=== PATIENT | male | born 1960 | race Hispanic/Latino ===

== ENCOUNTER 2019-08-28 20:23 | Emergency (ER) | payer OTHER, SELFPAY ==
--- NOTE | 2019-08-28 21:20 | RAD ---
LEFT KNEE FOUR VIEWS: HISTORY: Left knee pain. FINDINGS: Mild degenerative changes are seen. No fracture, dislocation or bony destruction is identified. A zenaida nt effusion is present. POS: [facility]
[2019-08-28] MEDS ORDERED: Lidocaine 1% w/Epinephrine 1:100K 20 ML VIAL ONE (21:46)
[2019-08-28] MEDS ORDERED: Ketorolac Tromethamine 30 MG/ML VIAL ONE (22:44)
[2019-08-28 23:16] LABS: RBC Count-Automated (BF) 0 /cumm
[2019-08-28 23:31] LABS: WBC/Nucleated-Auto (BF) Greater than 51000 uL
[2019-08-28 23:32] LABS: BF Color Yellow; Body Fluid Source Synovial Fluid; Clarity Cloudy/Turbid (Clear); Tube # EDTA
[2019-08-29 00:31] LABS: BF Segmented Neutrophils 86 %; Cell Count Non Hematic 12 %; Lymphocytes 2 %
== END 2019-08-28 23:50 | disposition home or self-care (01) ==
LOC: ERS 20:23
DX: M25.462 Effusion, left knee (principal); E11.9 Type 2 diabetes mellitus without complications; I10 Essential (primary) hypertension; Z79.84 Long term (current) use of oral hypoglycemic drugs; Z79.899 Other long term (current) drug therapy
CPT/HCPCS: 20611; 85060; 87070; 87205; 89051; 89060; 96372; J1885

== ENCOUNTER 2019-09-29 17:08 | Emergency (ER) | payer MEDICARE, OTHER ==
[2019-09-29 17:54] LABS: #Eosinphils 0.2 thou/uL (0.0-0.7); #Lymphocytes 1.7 thou/uL (1.20-3.40); #Monocytes 0.5 thou/uL (0.11-0.59); #Neutrophils 4.2 thou/uL (1.40-6.50); %Eosinophils 3.5 % (0.0-10.0); %Lymphocytes 25.2 % (21.0-51.0); %Monocytes 7.4 % (0.0-10.0); %Neutrophils 63.9 % (42.0-75.0); Hemoglobin 13.6 g/dL (14.0-18.0); Mean Corpuscular HGB CONC 34.3 g/dL (32.0-36.0); Mean Corpuscular Hemoglobin 30.3 pg (27.0-31.0); Mean Corpuscular Volume 88.4 fL (78.0-98.0); Mean Platelet Volume 8.3 fL (7.4-10.4); Platelet Count 187 thou/uL (130-400); RBC Distribution Width 13.2 % (11.5-14.5); Red Blood Cell (RBC) Count 4.49 mill/uL (4.70-6.10); White Blood Cell (WBC) Count 6.6 thou/uL (4.8-10.8)
--- NOTE | 2019-09-29 18:01 | ULT ---
Left lower extremity venous Doppler ultrasound: 09/29/2019 COMPARISON: None HISTORY: Swelling, pain, edema, assess for DVT TECHNIQUE: Multiplanar grayscale sonographic imaging of the venous structures of the left lower extre mity obtained with color flow and spectral analysis FINDINGS: Left common femoral vein, greater saphenous vein, profunda femoral vein, femoral vein, popl iteal vein, and posterior tibial vein are patent. Normal blood flow, augmentation, and compression within the deep venous system on the left. No evidence for deep venous thrombosis. IMPRESSION: No evidence for deep venous thrombosis of the left lower extremity.
[2019-09-29 18:15] LABS: ALT (SGPT) 21 U/L (8-55); AST (SGOT) 19 U/L (5-34); Albumin 4.3 g/dL (3.4-4.8); Alkaline Phosphatase 62 U/L (40-110); Anion Gap 15 mmol/L (10-20); BUN (Urea Nitrogen) 14 mg/dL (8.4-25.7); Bilirubin, Total 0.3 mg/dL (0.2-1.2); Calc. Creatinine Clearance 0 mL/min (70-130); Calcium 9.6 mg/dL (7.8-10.44); Carbon Dioxide 21 mmol/L (23-31); Chloride 105 mmol/L (98-107); Estimated GFR-MDRD 84; Globulin 3.3 g/dL (2.4-3.5); Glucose 161 mg/dL (80-115); Potassium 3.6 mmol/L (3.5-5.1); Protein, Total 7.6 g/dL (5.8-8.1); Sodium 137 mmol/L (136-145)
[2019-09-29] MEDS ORDERED: Lidocaine 1% w/Epinephrine 1:100K 20 ML VIAL ONE (21:05)
--- NOTE | 2019-09-29 21:12 | RAD ---
Left knee 4 views: 09/29/2019 COMPARISON: None available HISTORY: Knee pain FINDINGS: There is a small knee joint effusion. There is mild posterior patellar osteophyte formation . No acute fracture or dislocation. IMPRESSION: Knee joint effusion. No acute fracture or dislocation.
[2019-09-29] MEDS ORDERED: Morphine 4 MG/ML VIAL ONE (21:21)
[2019-09-29] MEDS ORDERED: Ketorolac Tromethamine 30 MG/ML VIAL ONE (21:21)
[2019-09-29 23:41] LABS: RBC Count-Automated (BF) 297512 /cumm; WBC/Nucleated-Auto (BF) 2733 uL
[2019-09-29 23:54] LABS: BF Color Red; Body Fluid Source Synovial Fluid; Clarity Cloudy/Turbid (Clear); Tube # EDTA
[2019-09-29 23:56] LABS: BF Segmented Neutrophils 40 %; Cell Count Non Hematic 18 %; Eosinophils 1 %; Lymphocytes 41 %
== END 2019-09-29 23:05 | disposition home or self-care (01) ==
LOC: ERS 17:08
DX: M25.462 Effusion, left knee (principal); M10.9 Gout, unspecified; E11.9 Type 2 diabetes mellitus without complications; I10 Essential (primary) hypertension; Z79.84 Long term (current) use of oral hypoglycemic drugs; Z79.899 Other long term (current) drug therapy
CPT/HCPCS: 20610; 36415; 80053; 82945; 85025; 85060; 85379; 87070; 87205; 89051; 89060; 96372; J1885; J2270

== ENCOUNTER 2020-04-27 08:49 | Emergency (ER) | payer OTHER, SELFPAY ==
[2020-04-28 12:16] LABS: SARS-CoV-2 MS2 Positive; SARS-CoV-2 N Gene Negative; SARS-CoV-2 S Gene Negative; SARS-CoV-2 by NAA Not Detected (NotDetected); SARS-CoV-2 orf1ab Negative
== END 2020-04-27 09:19 | disposition home or self-care (01) ==
LOC: ERS 08:49
DX: Z20.828 Contact with and (suspected) exposure to other viral communicable diseases (principal); E11.9 Type 2 diabetes mellitus without complications; I10 Essential (primary) hypertension; Z79.84 Long term (current) use of oral hypoglycemic drugs; Z79.899 Other long term (current) drug therapy
CPT/HCPCS: 87635; 99283; U0003

== ENCOUNTER 2022-11-12 19:59 | Emergency (ER) | payer MEDICARE | END 2022-11-12 21:09 | disposition home or self-care (01) | LOC: ERS 19:59 | DX: U07.1 COVID-19 (principal); J06.9 Acute upper respiratory infection, unspecified; E11.9 Type 2 diabetes mellitus without complications; I10 Essential (primary) hypertension; Z79.899 Other long term (current) drug therapy; Z79.84 Long term (current) use of oral hypoglycemic drugs | CPT/HCPCS: U0003; U0005; 99282 ==

== ENCOUNTER 2025-05-01 06:51 | Outpatient (CLI) | payer MEDICARE | END 2025-05-01 06:52 | disposition home or self-care (01) | LOC: ULT 06:51 | PROVIDERS: ATTEND Family Medicine | DX: Z13.6 Encounter for screening for cardiovascular disorders (principal); Z87.891 Personal history of nicotine dependence | CPT/HCPCS: 76775 ==